=== PATIENT | male | born 1980 | race Caucasian/White ===

== ENCOUNTER → 2018-09-06 21:38 | Outpatient (CLI) | payer OTHER, SELFPAY ==
[2018-09-06 18:59] VITALS: BMI 32.2
[2018-09-06 21:43] LABS: Absolute Lymphocyte Count 1.97 X10^3/ul (0.83-4.51); Absolute Neutrophil Count 2.8 X10^3/uL (2.0-7.7); Basophil# 0.01 X10^3/uL; Basophil% 0.2 % (0-1); Eosinophil# 0.17 X10^3/uL; Eosinophils% 3.2 % (0-5); Hematocrit 44.3 % (40-54); Hemoglobin 15.4 g/dl (13.0-16.5); Lymphocyte # 1.97 X10^3/ul (4.0); Lymphocyte % 37.2 % (19-41); Mean Corp Hgb Conc 34.8 g/gl (32-36); Mean Corpuscular Hgb 29.5 pg (27.0-32.0); Mean Corpuscular Volume 84.9 fL (80-94); Mean Platelet Vol. 9.9 fl (6.2-12.0); Monocyte# 0.35 X10^3/uL; Monocyte% 6.6 % (0-10); Neutrophil # 2.78 X10^3/uL (2.7-7.7); Neutrophil % 52.6 % (47-70); Platelet Count 222 K/mm3 (150-450); RBC Distribution Width CV 11.9 % (11.6-14.6); RBC Distribution Width SD 36.5 fl (35.1-43.9); Red Blood Count 5.22 M/mm3 (4.6-6.2); White Blood Count 5.3 K/mm3 (4.4-11.0)
[2018-09-06 21:49] LABS: POSITIVE COUNT NO; POSITIVE DIFFERENTIAL NO; POSITIVE MORPHOLOGY NO
[2018-09-06 21:54] LABS: ALB/GLOB Ratio 1.3 RATIO (0.9-2.4); AST(SGOT) 19 U/L (15-37); Alanine Aminotransfer ALT/SGPT 36 U/L (16-61); Albumin, Serum 4.4 g/dL (3.2-5.0); Alkaline Phosphatase 51 U/L (45-117); Anion Gap 7 (5-15); BUN 11 mg/dL (7-18); BUN/Creat Ratio 11.1 RATIO (10-20); Calcium,Total 8.8 mg/dL (8.5-10.1); Chloride 102 mmol/L (98-107); Cholesterol 199 mg/dL (200); Creatinine, Serum 0.99 mg/dL (0.70-1.30); EST Glomerular Filtration Rate 91 mL/min (>60); Est Glom Filt Rate - Afr Amer 110 mL/min (>60); Globulin 3.4 g/dL (2.2-4.2); Glucose 97 mg/dL (74-106); High Density Lipoprotein 34 mg/dL; Potassium 3.5 mmol/L (3.5-5.1); Protein, Total 7.8 g/dL (6.4-8.2); Sodium Level 139 mmol/L (136-145); Triglycerides 232 mg/dL; Very Low Density Lipoprotein 46 mg/dL (5-40)
== END ==
PROVIDERS: Referring Provider Nurse Practitioner; Visit Provider Nurse Practitioner
DX: I10 Essential (primary) hypertension (principal); E78.5 Hyperlipidemia, unspecified
CPT/HCPCS: 80053; 80061; 85025

== ENCOUNTER → 2019-02-05 | Outpatient (CLI) | payer OTHER, SELFPAY ==
[2019-02-05 18:51] VITALS: BMI 33.1
[2019-02-05 23:51] LABS: Absolute Lymphocyte Count 1.98 X10^3/uL (0.83-4.51); Absolute Neutrophil Count 2.9 X10^3/uL (2.0-7.7); Basophil# 0.01 X10^3/uL; Basophil% 0.2 % (0-1); Eosinophil# 0.28 X10^3/uL; Hematocrit 43.9 % (40-54); Hemoglobin 15.3 g/dL (13.0-16.5); Lymphocyte # 1.98 X10^3/ul (4.0); Lymphocyte % 35.7 % (19-41); Mean Corp Hgb Conc 34.9 g/dL (32-36); Mean Corpuscular Hgb 29.8 pg (27.0-32.0); Mean Corpuscular Volume 85.6 fL (80-94); Mean Platelet Vol. 10.5 fl (6.2-12.0); Monocyte# 0.35 X10^3/uL; Monocyte% 6.3 % (0-10); NRBC Flagged by Analyzer 0 % (0-5); Neutrophil # 2.92 X10^3/uL (2.7-7.7); Neutrophil % 52.6 % (47-70); Platelet Count 208 K/mm3 (150-450); RBC Distribution Width CV 11.5 % (11.6-14.6); RBC Distribution Width SD 35.4 fl (35.1-43.9); Red Blood Count 5.13 M/mm3 (4.6-6.2); White Blood Count 5.6 K/mm3 (4.4-11.0)
[2019-02-06 00:15] LABS: ALB/GLOB Ratio 1.2 RATIO (0.9-2.4); AST(SGOT) 24 U/L (15-37); Alanine Aminotransfer ALT/SGPT 48 U/L (16-61); Albumin, Serum 4.1 g/dL (3.2-5.0); Alkaline Phosphatase 56 U/L (45-117); Amylase 30 U/L (25-115); Anion Gap 5 (5-15); BUN 10 mg/dL (7-18); BUN/Creat Ratio 8.4 RATIO (10-20); Calcium,Total 8.9 mg/dL (8.5-10.1); Chloride 106 mmol/L (98-107); Creatinine, Serum 1.19 mg/dL (0.70-1.30); EST Glomerular Filtration Rate 73 mL/min (>60); Est Glom Filt Rate - Afr Amer 88 mL/min (>60); Globulin 3.5 g/dL (2.2-4.2); Glucose 105 mg/dL (74-106); Lipase 186 U/L (73-393); Potassium 3.9 mmol/L (3.5-5.1); Protein, Total 7.6 g/dL (6.4-8.2); Sodium Level 141 mmol/L (136-145)
== END | disposition home or self-care (01) ==
PROVIDERS: Family Provider Nurse Practitioner; PCP Nurse Practitioner; Referring Provider Nurse Practitioner; Visit Provider Nurse Practitioner
DX: R10.13 Epigastric pain (principal); R14.0 Abdominal distension (gaseous)
CPT/HCPCS: 80053; 82150; 83690; 85025

== ENCOUNTER → 2019-11-20 | Outpatient (CLI) | payer OTHER, SELFPAY ==
[2019-11-20 18:20] VITALS: BMI 31.4
[2019-11-20 21:37] LABS: Absolute Lymphocyte Count 2.03 X10^3/uL (0.83-4.51); Absolute Neutrophil Count 3.1 X10^3/uL (2.0-7.7); Basophil# 0.01 X10^3/uL; Basophil% 0.2 % (0-1); Eosinophil# 0.29 X10^3/uL; Hematocrit 43.5 % (40-54); Hemoglobin 14.6 g/dL (13.0-16.5); Lymphocyte # 2.03 X10^3/ul (4.0); Lymphocyte % 35.2 % (19-41); Mean Corp Hgb Conc 33.6 g/dL (32-36); Mean Corpuscular Hgb 29.5 pg (27.0-32.0); Mean Corpuscular Volume 87.9 fL (80-94); Mean Platelet Vol. 10.6 fl (6.2-12.0); Monocyte# 0.34 X10^3/uL; Monocyte% 5.9 % (0-10); NRBC Flagged by Analyzer 0 % (0-5); Neutrophil # 3.08 X10^3/uL (2.7-7.7); Neutrophil % 53.4 % (47-70); Platelet Count 249 K/mm3 (150-450); RBC Distribution Width CV 11.7 % (11.6-14.6); Red Blood Count 4.95 M/mm3 (4.6-6.2); White Blood Count 5.8 K/mm3 (4.4-11.0)
[2019-11-20 21:50] LABS: ALB/GLOB Ratio 1.3 RATIO (0.9-2.4); AST(SGOT) 16 U/L (15-37); Alanine Aminotransfer ALT/SGPT 31 U/L (16-61); Albumin, Serum 4.4 g/dL (3.2-5.0); Alkaline Phosphatase 50 U/L (45-117); Anion Gap 8 (5-15); BUN 14 mg/dL (7-18); BUN/Creat Ratio 15.2 RATIO (10-20); Calcium,Total 9.2 mg/dL (8.5-10.1); Chloride 103 mmol/L (98-107); Cholesterol 157 mg/dL (200); Creatinine, Serum 0.92 mg/dL (0.70-1.30); EST Glomerular Filtration Rate 98 mL/min (>60); Est Glom Filt Rate - Afr Amer 118 mL/min (>60); Globulin 3.4 g/dL (2.2-4.2); Glucose 108 mg/dL (74-106); High Density Lipoprotein 29 mg/dL; Potassium 3.7 mmol/L (3.5-5.1); Protein, Total 7.8 g/dL (6.4-8.2); Sodium Level 141 mmol/L (136-145); Triglycerides 210 mg/dL; Very Low Density Lipoprotein 42 mg/dL (5-40)
== END | disposition home or self-care (01) ==
PROVIDERS: PCP Nurse Practitioner; Referring Provider Nurse Practitioner; Visit Provider Nurse Practitioner
DX: I10 Essential (primary) hypertension (principal); E78.2 Mixed hyperlipidemia
CPT/HCPCS: 80053; 80061; 85025

== ENCOUNTER → 2020-04-07 | Outpatient (CLI) | payer OTHER, SELFPAY ==
[2020-04-07 19:31] VITALS: BMI 32.8
[2020-04-07 23:15] LABS: Absolute Lymphocyte Count 1.95 X10^3/uL (0.83-4.51); Basophil# 0.01 X10^3/uL; Basophil% 0.2 % (0-1); Eosinophil# 0.25 X10^3/uL; Eosinophils% 4.5 % (0-5); Hematocrit 45.4 % (40-54); Hemoglobin 15.3 g/dL (13.0-16.5); Lymphocyte # 1.95 X10^3/ul (4.0); Lymphocyte % 34.8 % (19-41); Mean Corp Hgb Conc 33.7 g/dL (32-36); Mean Corpuscular Hgb 29.5 pg (27.0-32.0); Mean Corpuscular Volume 87.5 fL (80-94); Monocyte# 0.36 X10^3/uL; Monocyte% 6.4 % (0-10); NRBC Flagged by Analyzer 0 % (0-5); Neutrophil % 53.6 % (47-70); Platelet Count 244 K/mm3 (150-450); RBC Distribution Width CV 11.7 % (11.6-14.6); RBC Distribution Width SD 37.3 fl (35.1-43.9); Red Blood Count 5.19 M/mm3 (4.6-6.2); White Blood Count 5.6 K/mm3 (4.4-11.0)
[2020-04-07 23:24] LABS: ALB/GLOB Ratio 1.2 RATIO (0.9-2.4); AST(SGOT) 14 U/L (15-37); Alanine Aminotransfer ALT/SGPT 37 U/L (16-61); Albumin, Serum 4.2 g/dL (3.2-5.0); Alkaline Phosphatase 55 U/L (45-117); Anion Gap 5 (5-15); BUN 9 mg/dL (7-18); BUN/Creat Ratio 8.1 RATIO (10-20); Calcium,Total 9.3 mg/dL (8.5-10.1); Chloride 104 mmol/L (98-107); Cholesterol 197 mg/dL (200); Creatinine, Serum 1.11 mg/dL (0.70-1.30); EST Glomerular Filtration Rate 79 mL/min (>60); Est Glom Filt Rate - Afr Amer 95 mL/min (>60); Globulin 3.6 g/dL (2.2-4.2); Glucose 92 mg/dL (74-106); High Density Lipoprotein 38 mg/dL; Potassium 4.4 mmol/L (3.5-5.1); Protein, Total 7.8 g/dL (6.4-8.2); Sodium Level 141 mmol/L (136-145); Triglycerides 393 mg/dL; Very Low Density Lipoprotein 79 mg/dL (5-40)
== END | disposition home or self-care (01) ==
PROVIDERS: PCP Nurse Practitioner; Visit Provider Nurse Practitioner
DX: E78.5 Hyperlipidemia, unspecified (principal); I10 Essential (primary) hypertension
CPT/HCPCS: 80053; 80061; 85025

== ENCOUNTER → 2023-03-16 | Outpatient (CLI) | payer OTHER, SELFPAY | END | disposition home or self-care (01) | PROVIDERS: PCP Nurse Practitioner; Visit Provider Nurse Practitioner | DX: R31.9 Hematuria, unspecified (principal) | CPT/HCPCS: 87086 ==

== ENCOUNTER → 2023-07-19 | Outpatient (CLI) | payer OTHER, SELFPAY ==
--- OUTSIDE RECORDS SUMMARY | 2023-07-19 21:41 | XMS RPT_ITS | CCD ---
Author Name Unknown Address [address] [place] [address] [address] [place] [address] Organization [facility] Care Team Providers Care Plumbing Engineer Name Role Phone GAETANO MARY Primary Care Unavailable GAETANO MARY Primary Care Unavailable YOHANNES VARMA, ZABRINA Attending Unavail hiral SHEFFIELD MD, ZABRINA Attending GAETANO Leos Primary Care Unavailable Results Test Name Value Interpretation Reference Range Facil ity Encounters Encounter Date Encounter Type Care Provider Facility Start: 04-24-2023 End: 04-24-2023 ambulatory GAETANO MARY Facility:[facility] Start: 09-23-2022 End: 09-24-2022 ambulatory ZABRINA SHEFFIELD MD Facility:[facility] Start: 09-02-2022 End: 09-02-2022 ambulatory GAETANO MARY Facility:[facility] Payers Date Payer Category Payer Unknown [id number] 2008 Private Health Insurance 1981 Unknown [id number] 1981 Unknown [id number] Progress note 09-02-2022 Note Date & Type Note Facility 09-02-2022 Note HNO ID: [id number] Author: Betty Cesar APRN.MENA Service: ? Author Type: Nurse Practitioner Type: Progress Notes Filed: 09/02/2022 10:44 AM Note Text: This note was created using NoteWriter. Subjective Oren Aguilar is a 41 year old male. HPI by patient: Oren is a 41 year old presenting to the office with the complaint of eye infection Started approximately a few days ago Associated symptoms include eye redness, crusting, swollen eyelids and some sensitivity to light Denies any other concerns Covid Immunization Dates Overdue - COVID-19 VACCINE (1) Overdue - never done No completion, postpone, frequency change, or communication history exists for this topic. Personal history of Covid: yes Flu/RSV contacts: no Strep contacts: no Sick contacts: no Covid + contacts: no Travel in the last 14 days: no Smoking history/second hand smoke: no OTC nothing No antibiotic use in the last 60 days. ALLERGIES No Known Allergies No family history on file. Social History Tobacco Use Smoking status: Never Smokeless tobacco: Current Types: Chew Vaping Use Vaping Use: Never used Review of Systems Constitutional: Negative for chills and fever. HENT: Negative for congestion, ear pain, rhinorrhea and sore throat. Eyes: Positive for photophobia, pain, discharge, redness and itching. Negative for visual disturbance. Respiratory: Negative for cough. Cardiovascular: Negative for chest pain. Allergic/Immunologic: Negative for immunocompromised state. Neurological: Negative for headaches. Hematological: Negative for adenopathy. Objective Wt 95.7 kg (211 lb) BMI 31.16 kg/m? Physical Exam Vitals and nursing note reviewed. Constitutional: Appearance: He is well-developed. HENT: Right Ear: Tympanic membrane and ear canal normal. Left Ear: Tympanic membrane and ear canal normal. Nose: Nose normal. Mouth/Throat: Pharynx: Uvula midline. Eyes: General: Right eye: Discharge present. No foreign body or hordeolum. Left eye: Discharge present.No foreign body or hordeolum. Conjunctiva/sclera: Right eye: Right conjunctiva is injected. Exudate present. No chemosis or hemorrhage. Left eye: Left conjunctiva is injected. Chemosis and exudate present. No hemorrhage. Cardiovascular: Rate and Rhythm: Normal rate and regular rhythm. Heart sounds: Normal heart sounds. Pulmonary: Effort: Pulmonary effort is normal. Breath sounds: Normal breath sounds. Lymphadenopathy: Cervical: No cervical adenopathy. Skin: General: Skin is warm and dry. Neurological: Mental Status: He is alert and oriented to person, place, and time. Assessment and Plan ASSESSMENT/PLAN: 1. Bacterial conjunctivitis - ICD9: 372.39, 041.9, ICD10: H10.9- crusting noted on both eyes. Possible viral conjunctivitis, pt educated on possibility of viral infection. Cont zyrtec. Follow up with optho if no improvement - see medication orders - course and contagiousness issues discussed, including hand washing. - Instructed to call if high fever, development of periorbital redness or swelling, eye pain, visual changes, concerns or if symptoms persist. - ERYTHROMYCIN 5 MG/GRAM (0.5 %) EYE OINTMENT - AMOXICILLIN 875 MG-POTASSIUM CLAVULANATE 125 MG TABLET Betty Cesar APRN.TRACK SUPERINTENDENT Medical Decision Making: Problems: Moderate: New problem with uncertain prognosis Data: Unique source(s) for external note(s) reviewed: 1 Risk: Moderate: Drug management Medical Decision Making Level: 4 - Moderate This patient encounter involved the screening or treatment of novel coronavirus infection (COVID-19). [facility] Progress note 03-05-2021 Note Date & Type Note Facility 03-05-2021 Note HNO ID: [id number] Author: Zabrina [place] MD Service: Cardiovascular Disease Author Type: Physician Type: Progress Notes Filed: 03/05/2021 5:50 PM Note Text: INPATIENT CONSULT PROGRESS NOTES Patient Name: Oren Aguilar DATE of SERVICE: 03/05/2021 TIME of SERVICE: 5:47 PM CONSULTING SERVICE: Cardiology INTERVAL HPI: Feels better and he spontaneously converted to sinus during RALPH. Discussed about his medications and also advised to avoid too much caffeine. DRUGS REVIEWED: ASSESSMENT AND PLAN: Status post AF and now in sinus Hypertension OK to discharge him Would double the dose of Bystolic No anticoagulation Follow up in three weeks Continue home meds PHYSICAL EXAM: Blood pressure 106/69, pulse 60, temperature 36.3 ?C (97.3 ?F), temperature source Temporal, resp. rate 18, height 175.3 cm (5' 9 ), weight 98.7 kg (217 lb 9.5 oz), SpO2 97 %. Body mass index is 32.13 kg/m?. GENERAL: Alert, no distress, cooperative NECK: No jugulovenous distention, No carotid bruits, Carotid pulse normal contour, Supple LUNGS: Lungs clear to auscultation, Good diaphragmatic excursion CARDIAC: Normal S1 and S2; no rubs, murmurs, or gallops ABDOMEN:benign, soft, flat, non-tender, no masses, normal bowel sounds NEURO: Awake, alert and oriented x 3 EXTREMITIES: Extremities normal, no deformities, edema, clubbing or skin discoloration. Good capillary refill., No ulcers PULSES: 2+ radial, 2+ carotid LABS: CBC: Recent Labs 03/05/21 05 WBC 6.62 RBC 4.98 HB 15.2 HCT 43.5 PLT 215 MCV 87.3 MCH 30.5 MPV 10.3 CMP: Recent Labs 03/05/21 0503/04/21209903/04/212099 NA 141 < > 142 K 4.0 < > 4.1 CHLOR 104 < > 103 CO2 28 < > 26 BUN 15 < > 14 CREAT 1.14 < > 1.12 GLUC 99 < > 108* TPROT 6.4 < > 7.3 CA 9.1 < > 9.6 MG -- -- 2.1 TBILI 0.7 < > 0.6 ALKPHOS 43 < > 48 ALT 32 < > 34 AST 21 < > 19 ANION 9 < > 13 < > = values in this interval not displayed. Cardiac Enzymes: Recent Labs 03/05/21 0600 03/04/21209903/04/212099 CK -- -- 164 TROPT <0.010 < > <0.010 < > = values in this interval not displayed. SIGNATURE: Zabrina [place] MD CELL; [phone] DATE: March 05, 2021 TIME: 5:47 PM [facility] Procedure note 03-05-2021 Note Date & Type Note Facility 03-05-2021 Note HNO ID: [id number] Author: Zabrina [place] MD Service: Cardiovascular Disease Author Type: Physician Type: Procedures Filed: 03/05/2021 11:46 AM Note Text: OPERATIVE/PROCEDURE REPORT LOG ID: [id number] SURGERY/PROCEDURE DATE: 03/05/2021 INCISION/PROCEDURE START TIME: 11:37 AM INCISION CLOSE/PROCEDURE END TIME: 11:41 AM SURGEON(S)/PROCEDURALIST(S) AND FIVE ROLL REFINER BATCH MIXER(S): Surgeon(s) and Role: * Zabrina [place] MD - Primary No Additional Staff SURGERY/PROCEDURE(S): RALPH ANESTHESIA: Monitored Anesthesia Care SURGERY/PROCEDURE DETAILS:The patient is brought in to PACU and consent has been obtained and patient is aware of the procedure and potential complications and he agreed. TME OUT has been called and everyone has agreed before patient has been adequately sedated. A RALPH probe has been placed without any problem and the patient has tolerated the procedure well. His vitals and oxygen saturation have been adequately maintained during the procedure.Patient has recovered from anesthesia without any problem and I have explained the RALPH findings to the patient and family and he left PACU in stable condition. . PRE-OP/PRE-PROCEDURE DIAGNOSIS: AF POST-OP/POST-PROCEDURE DIAGNOSIS: NSR RALPH: Normal EF around 58% No smoke or thrombus in LA or IVÁN Negative bubble study No plaque in the descending aorta Patient spontaneously converted to sinus during RALPH ESTIMATED BLOOD LOSS: 0 ml SPECIMENS: None IMPLANTABLE DEVICES: None DRAINS: None COMPLICATIONS: None PARTICIPATION IN SURGERY/PROCEDURE: I performed the entire procedure. SIGNATURE: Zabrina [place] MD PATIENT NAME: Oren Aguilar DATE: March 05, 2021 TIME: 11:44 AM PAGER/CONTACT #: [facility] Summary Purpose Family History No Family History Records FoundNo Family History Records FoundNo Family History Records Found Advance Directives No Advanced Directives Records FoundNo Advanced Directives Records FoundNo Advanced Directives Records Found Additional Source Comments (unrecognized sect ion and content) No Status Records FoundNo Status Records FoundNo Status Records Found INFORMATION SOURCE (unrecogn ized section and content) DATE CREATED AUTHOR AUTHOR'S ORGANIZ ATION 09/03/2022 [facility] DATE CREATED AUTHOR AUTHOR'S ORGANIZ ATION 07/06/2023 [facility] FOR RECORDS PERTAINING TO PATIENTS WHO ARE OR HAVE BEEN ENROLLED IN A CHEMICAL DEPENDENCY/SUBSTANCEABUSE PROGRAM, SOME INFORMATION MAY BE OMITTED. This clinical summary was aggregated from multiple sources. Caution should be exercised in using it in the provision of clinical care. This summary normalizes information from multiple sources, and as a consequence, information in this document may materially change the coding, format and clinical context of patient data. In addition, data may be omitted in some cases. CLINICAL DECISIONS SHOULD BE BASED ON THE PRIMARY CLINICAL RECORDS. [facility]. provides no warranty or guarantee of the accuracy or completeness of information in this document.
[2023-07-19 22:04] LABS: Absolute Neutrophil Count 3.1 X10^3/uL (2.0-7.7); Basophil# 0.02 X10^3/uL; Basophil% 0.4 % (0-1); Eosinophil# 0.18 X10^3/uL; Eosinophils% 3.3 % (0-5); Hematocrit 45.6 % (40-54); Hemoglobin 15.6 g/dL (13.0-16.5); Lymphocyte % 31.6 % (19-41); Mean Corp Hgb Conc 34.2 g/dL (32-36); Mean Corpuscular Hgb 29.8 pg (27.0-32.0); Mean Platelet Vol. 11.4 fl (6.2-12.0); Monocyte% 7.4 % (0-10); NRBC Flagged by Analyzer 0 % (0-5); Neutrophil # 3.06 X10^3/uL (2.7-7.7); Neutrophil % 56.9 % (47-70); Platelet Count 259 K/mm3 (150-450); RBC Distribution Width CV 11.4 % (11.6-14.6); RBC Distribution Width SD 36.1 fl (35.1-43.9); Red Blood Count 5.24 M/mm3 (4.6-6.2); White Blood Count 5.4 K/mm3 (4.4-11.0)
[2023-07-19 22:29] LABS: ALB/GLOB Ratio 1.2 RATIO (0.9-2.4); AST(SGOT) 21 U/L (15-37); Alanine Aminotransfer ALT/SGPT 46 U/L (16-61); Albumin, Serum 4.1 g/dL (3.2-5.0); Alkaline Phosphatase 57 U/L (45-117); Anion Gap 4 (5-15); BUN 9 mg/dL (7-18); BUN/Creat Ratio 7.8 RATIO (10-20); Calcium,Total 9.5 mg/dL (8.5-10.1); Chloride 107 mmol/L (98-107); Cholesterol 167 mg/dL (200); Creatinine, Serum 1.16 mg/dL (0.70-1.30); EST Glomerular Filtration Rate 74 mL/min (>60); Est Glom Filt Rate - Afr Amer 89 mL/min (>60); Globulin 3.4 g/dL (2.2-4.2); Glucose 105 mg/dL (74-106); High Density Lipoprotein 30 mg/dL; Luteinizing Hormone 4.1 mIU/mL; Protein, Total 7.5 g/dL (6.4-8.2); Sodium Level 141 mmol/L (136-145); Thyroid Stim Hormone (TSH) 1.68 uIU/mL (0.358-3.74); Triglycerides 290 mg/dL; Very Low Density Lipoprotein 58 mg/dL (5-40)
== END | disposition home or self-care (01) ==
PROVIDERS: PCP Nurse Practitioner; Visit Provider Nurse Practitioner
DX: R26.1 Paralytic gait (principal); F41.9 Anxiety disorder, unspecified; E78.5 Hyperlipidemia, unspecified
CPT/HCPCS: 80053; 80061; 83002; 84403; 84443; 85025

== ENCOUNTER → 2023-07-29 | Outpatient (CLI) | payer OTHER, SELFPAY ==
--- OUTSIDE RECORDS SUMMARY | 2023-07-29 20:13 | XMS RPT_ITS | CCD ---
Author Name Unknown Address [address] [place] [address] [address] [place] [address] Organization [facility] Care Team Providers Care Loan Inspector Name Role Phone GAETANO MARY Primary Care Unavailable GAETANO MARY Primary Care Unavailable YOHANNES VARMA, ZARBINA Attending Unavail hiral SHEFFIELD MD, ZABRINA Attending GAETANO Leos Primary Care Unavailable Results Test Name Value Interpretation Reference Range Facil ity Encounters Encounter Date Encounter Type Care Provider Facility Start: 04-24-2023 End: 04-24-2023 ambulatory GAETANO MARY Facility:[facility] Start: 09-23-2022 End: 09-24-2022 ambulatory ZABRINA SHEFFIELD MD Facility:[facility] Start: 09-02-2022 End: 09-02-2022 ambulatory GAETANO MARY Facility:[facility] Payers Date Payer Category Payer Unknown [id number] 2008 Private Health Insurance 1981 Unknown [id number] 1981 Unknown [id number] Progress note 09-02-2022 Note Date & Type Note Facility 09-02-2022 Note HNO ID: [id number] Author: Betty Cesar APRN.MENA Service: ? Author [...] MG-POTASSIUM CLAVULANATE 125 MG TABLET Betty Cesar APRN.LEVEL VIAL SETTER Medical Decision Making: Problems: Moderate: New problem with uncertain prognosis Data: Unique source(s) for external note(s) reviewed: 1 Risk: Moderate: Drug management Medical Decision Making Level: 4 - Moderate This patient encounter involved the screening or treatment of novel coronavirus infection (COVID-19). [facility] Progress note 03-05-2021 Note Date & Type Note Facility 03-05-2021 Note HNO ID: [id number] Author: Zabrina [place] MD Service: Cardiovascular Disease [...] not displayed. SIGNATURE: Zabrina [place] MD CELL; [phone] DATE: March 05, 2021 TIME: 5:47 PM [facility] Procedure note 03-05-2021 Note Date & Type Note Facility 03-05-2021 Note HNO ID: [id number] Author: Zabrina [place] MD Service: Cardiovascular Disease Author Type: Physician Type: Procedures Filed: 03/05/2021 11:46 AM Note Text: OPERATIVE/PROCEDURE REPORT LOG ID: [id number] SURGERY/PROCEDURE DATE: 03/05/2021 INCISION/PROCEDURE START TIME: 11:37 AM INCISION CLOSE/PROCEDURE END TIME: 11:41 AM SURGEON(S)/PROCEDURALIST(S) AND TECHNICAL SPEC(S): Surgeon(s) and Role: * Zabrina [place] MD [...] 05, 2021 TIME: 11:44 AM PAGER/CONTACT #: [facility] Summary Purpose Family History No Family History [...] DATE CREATED AUTHOR AUTHOR'S ORGANIZ ATION 09/03/2022 [facility] DATE CREATED AUTHOR AUTHOR'S ORGANIZ ATION 07/06/2023 [facility] FOR RECORDS PERTAINING TO PATIENTS WHO ARE [...] BE BASED ON THE PRIMARY CLINICAL RECORDS. [facility]. provides no warranty or guarantee of the accuracy or completeness of information in this document.
[2023-07-29 20:37] LABS: PSA,Total- Diagnostic 0.98 ng/mL (0.0-4.0)
== END | disposition home or self-care (01) ==
PROVIDERS: PCP Nurse Practitioner; Referring Provider Nurse Practitioner; Visit Provider Nurse Practitioner
DX: N40.0 Benign prostatic hyperplasia without lower urinary tract symptoms (principal); R79.89 Other specified abnormal findings of blood chemistry
CPT/HCPCS: 84153; 84403

== ENCOUNTER → 2023-11-21 | Outpatient (CLI) | payer OTHER, SELFPAY | END | disposition home or self-care (01) | PROVIDERS: PCP Nurse Practitioner; Visit Provider Nurse Practitioner | DX: R79.89 Other specified abnormal findings of blood chemistry (principal) | CPT/HCPCS: 84403 ==

== ENCOUNTER → 2024-06-06 | Outpatient (CLI) | payer OTHER, SELFPAY ==
[2024-06-06 20:35] LABS: Absolute Lymphocyte Count 1.93 X10^3/uL (0.83-4.51); Absolute Neutrophil Count 3.9 X10^3/uL (2.0-7.7); Basophil# 0.01 X10^3/uL; Basophil% 0.2 % (0-1); Eosinophil# 0.33 X10^3/uL; Hematocrit 48.1 % (40-54); Hemoglobin 16.6 g/dL (13.0-16.5); Lymphocyte # 1.93 X10^3/ul (0.83-4.51); Lymphocyte % 29.5 % (19-41); Mean Corp Hgb Conc 34.5 g/dL (32-36); Mean Corpuscular Hgb 29.5 pg (27.0-32.0); Mean Corpuscular Volume 85.6 fL (80-94); Mean Platelet Vol. 9.8 fl (6.2-12.0); Monocyte# 0.35 X10^3/uL; Monocyte% 5.4 % (0-10); NRBC Flagged by Analyzer 0 % (0-5); Neutrophil % 59.6 % (47-70); Platelet Count 215 K/mm3 (150-450); RBC Distribution Width CV 11.5 % (11.6-14.6); RBC Distribution Width SD 35.6 fl (35.1-43.9); Red Blood Count 5.62 M/mm3 (4.6-6.2); White Blood Count 6.5 K/mm3 (4.4-11.0)
[2024-06-06 20:53] LABS: ALB/GLOB Ratio 1.1 RATIO (0.9-2.4); AST(SGOT) 14 U/L (15-37); Alanine Aminotransfer ALT/SGPT 34 U/L (16-61); Albumin, Serum 3.9 g/dL (3.2-5.0); Alkaline Phosphatase 45 U/L (45-117); Anion Gap 5 (5-15); BUN 9 mg/dL (7-18); Calcium,Total 9.1 mg/dL (8.5-10.1); Chloride 103 mmol/L (98-107); Cholesterol 162 mg/dL (200); Creatinine, Serum 1.13 mg/dL (0.70-1.30); EST Glomerular Filtration Rate 76 mL/min (>60); Est Glom Filt Rate - Afr Amer 91 mL/min (>60); Globulin 3.5 g/dL (2.2-4.2); Glucose 127 mg/dL (74-106); High Density Lipoprotein 29 mg/dL; Potassium 3.5 mmol/L (3.5-5.1); Protein, Total 7.4 g/dL (6.4-8.2); Sodium Level 137 mmol/L (136-145); Triglycerides 262 mg/dL; Very Low Density Lipoprotein 52 mg/dL (5-40)
== END | disposition home or self-care (01) ==
LOC: LABSPEC 20:25
PROVIDERS: PCP Nurse Practitioner; Visit Provider Nurse Practitioner
DX: I10 Essential (primary) hypertension (principal); E78.2 Mixed hyperlipidemia
CPT/HCPCS: 80053; 80061; 85025